=== PATIENT | female | born 1945 | race Caucasian/White ===

== ENCOUNTER → 2017-02-04 | Day surgery (SDC) | payer MEDICARE, BC ==
[~2017-02-04] MED LIST: ASPI81TA81 PO; ATROPINE SULFATE 1% OPHT SOLN 5 ML BTL ONE; DEXAMETHASONE SOD PHOS 4 MG/ML VIAL ONE; EPINEPHrine HCL (1:1000) 1 MG/ML VIAL ONE; FLURBIPROFEN 0.03% OPHT SOLN 2.5 ML BTL ONE; HYALURONIDASE/LIDOCAINE/BUPIVACAINE 11 ML SYR TL ONE; LACTATED RINGER'S 1000 ML INJ 1,000 ML ONE; METF500T4 PO; NEOMYCIN/POLYMYXIN/DEXAMETHASONE OPTH OINT 3.5 GM TUBE ONE; PHENYLEPHRINE HCL 2.5% OPTH SOLN 2 ML BTL ONE; PROPOFOL 200 MG/20 ML AMP IV ONE; SODIUM CHLORIDE 0.9% INJ 10 ML ONE; TETRACAINE 0.5% OPTH SOLN 15 ML BTL ONE; TRIAMCINOLONE ACETONIDE 40 MG/ML VIAL ONE; TROPICAMIDE 1% OPHT SOLN 15 ML BTL ONE; blood pressure med PO; ceFAZolin INJ 1,000 MG VIAL ONE; cholesterol med PO
--- NOTE | 2017-02-07 20:12 | MP ---
cc: JOSUE WIGGINS MD DATE OF SURGERY: 02/04/2017. PREOPERATIVE DIAGNOSIS: Epiretinal membrane, right eye. POSTOPERATIVE DIAGNOSIS: Epiretinal membranes with horseshoe tear. OPERATION: Epiretinal membrane repair with vitrectomy and membrane peeling. SURGEON: Josue Wiggins MD ANESTHESIA: MAC. COMPLICATIONS: Retinal horseshoe tear. DESCRIPTION OF THE PROCEDURE IN DETAIL: After informed consent was obtained, the patient was brought to the operating room, placed under brief anesthesia with propofol. 10 cc of 50/50 mixture of 0.75% Marcaine and 2% lidocaine was placed in a modified [place]int lid block as well as peribulbar injection. The patient was then prepared and draped in usual sterile fashion. A wire lid speculum was placed in the patient's ?? eye. 23-gauge vitrectomy cannulas were then placed in the lower temporal, superotemporal and superonasal quadrants 3 mm posterior to the corneoscleral limbus. Infusion cannula was placed lower temporally. A core vitrectomy was then performed. The vitrectomy is carried out as far as possible to vitreous base. Attention was then turned to the posterior pole where there was an epiretinal membrane covering the surface of the macula. It was carefully peeled off the macula with intraocular forceps. The same was then done for the internal limiting membrane. Careful indirect ophthalmoscopy with scleral depression was then performed and no peripheral retinal breaks were noted. The three vitrectomy cannulas were then removed. Subconjunctival injections of dexamethasone and Ancef were placed. An Atropine drop, Maxitrol ointment and a patch shield were then applied. The patient tolerated the procedure well. There were no complications. ADDENDUM: The patient had a superior retinal tear which was treated with laser after the vitrectomy. No other retinal breaks were noted. She will follow up tomorrow in our [facility] office Josue Wiggins MD TAB/[facility] /7:37 PM /7:58 PM
== END | disposition home or self-care (01) ==
LOC: ESDC 11:25
PROVIDERS: ATTEND Ophthalmology Retina Specialist
DX: H35.371 Puckering of macula, right eye (principal); H33.311 Horseshoe tear of retina without detachment, right eye
CPT/HCPCS: 00145; 67042; J0171; J0690; J1100; J7120; J3301